=== PATIENT | female | born 1985 | race Asian ===

== ENCOUNTER 2018-05-02 00:49 | Emergency (ER) | payer SELFPAY ==
[~2018-05-02] VITALS: Ht 165.1 cm; Wt 52.2 kg
[2018-05-02 00:59] VITALS: BP 137/83
== END 2018-05-02 01:43 | disposition home or self-care (01) ==
LOC: ER 00:51
DX: T22.131A Burn of first degree of right upper arm, initial encounter (principal); S40.021A Contusion of right upper arm, initial encounter; V49.59XA Passenger injured in collision with other motor vehicles in traffic accident, initial encounter; W22.19XA Striking against or struck by other automobile airbag, initial encounter; Y93.89 Activity, other specified; Y92.413 State road as the place of occurrence of the external cause; Y99.8 Other external cause status
CPT/HCPCS: 16020; 99284; A4606; Z7610